=== PATIENT | male | born 1955 | race Caucasian/White ===

== ENCOUNTER → 2018-09-07 12:36 | Outpatient (CLI) | payer OTHER, SELFPAY ==
--- NOTE | 2018-09-07 | DI.CT.S_ITS ---
PROCEDURE: CT UE RT WO CON INDICATIONS: TRAUMATIC ARTHROPATHY OF RIGHT ELBOW TECHNIQUE: Noncontrast 1-1.5 mm axial sections were acquired through the elbow joint, with coronal and sagittal reformats. COMPARISON: [facility], [place], XR ELBOW 1 OR 2 VIEWS RIGHT, 09/02/2018, 11:54. FINDINGS: Image quality: Diagnostic. Bones: There is no acute fracture, dislocation or suspicious osseous lesion identified involving the osseous structures of the elbow. There are severe degenerative changes of the elbow joint with prominent marginal osteophytes com areas of degenerative cystic change, areas of subchondral sclerosis, joint space narrowing, and prominent intra-articular joint bodies. There is a moderate-sized elbow joint effusion. Numerous intra-articular joint bodies are identified, best appreciated along the posterior aspect of the distal humerus within the olecranon fossa. These joint bodies measure up to approximately 12 mm in diameter. Soft tissues: No soft tissue masses or drainable fluid collections are identified. No significant atrophy is identified involving the muscles about the elbow. Please note that the ligamentous, cartilaginous, and tendinous structures of the elbow are not adequately evaluated on CT. IMPRESSION: 1. No acute fracture of the right elbow. 2. Severe degenerative changes of the elbow. 3. Moderate-sized elbow joint effusion containing multiple intra-articular joint bodies. Dictated by: José Miguel Andrews M.D. on 09/07/2018 at 14:03 Approved by: José Miguel Andrews M.D. on 09/07/2018 at 14:07
== END ==
PROVIDERS: PCP Nurse Practitioner Gerontology; Visit Provider Orthopaedic Surgery
DX: M12.521 Traumatic arthropathy, right elbow (principal); M25.421 Effusion, right elbow
CPT/HCPCS: 73200

== ENCOUNTER → 2019-09-29 10:31 | Outpatient (CLI) | payer OTHER, SELFPAY ==
--- NOTE | 2019-09-29 | DI.US.S_ITS ---
PROCEDURE: US ABDOMEN LIMITED INDICATIONS: RIGHT LOWER QUADRANT LUMP TECHNIQUE: Real-time focused scanning was performed of the right lower quadrant of the abdomen, with image documentation. COMPARISON: None. FINDINGS: Scanning is performed at the area of clinical concern involving the right lower quadrant. No focal abnormality can be seen within this region. No masses or abnormal fluid collections are seen. Negative for hernia. IMPRESSION: No ultrasound abnormalities can be seen at the area of the right lower quadrant lump. Dictated by: Gamal Patrick M.D. on 09/29/2019 at 13:00 Approved by: Gamal Patrick M.D. on 09/29/2019 at 13:01
== END ==
PROVIDERS: PCP Nurse Practitioner Gerontology; Referring Provider Nurse Practitioner Gerontology; Visit Provider Nurse Practitioner Gerontology
DX: R19.03 Right lower quadrant abdominal swelling, mass and lump (principal)
CPT/HCPCS: 76705